=== PATIENT | female | born 1985 | race Caucasian/White ===

== ENCOUNTER 2022-02-18 11:45 | Inpatient (IN) | payer OTHER ==
[2022-02-18 12:38] VITALS: BMI 29.0
[2022-02-18 14:45] LABS: SARS-CoV-2 NAA Rapid Test Not Detected (NotDetected)
[2022-02-18] MEDS ORDERED: Ondansetron PF 4 MG/2 ML Vial IVP PRN ×3 (14:53→22:21)
[2022-02-18] MEDS ORDERED: hydrALAZINE 20 MG/ML VIAL SLOW IVP PRN ×2 (14:53→22:21)
[2022-02-18] MEDS ORDERED: Promethazine HCl 25 MG/ML VIAL IM PRN ×3 (14:53→22:21)
[2022-02-18] MEDS ORDERED: Famotidine/PF 20 mg/2ml Vial SLOW IVP PRN (14:53)
[2022-02-18] MEDS ORDERED: Bicitra 30 ML UDCUP PO PRN (14:53)
[2022-02-18 14:54] LABS: Syphilis Antibody Nonreactive (Nonreactive); Syphilis Antibody Index 0.03 S/CO (<1.00 Non-Reactive)
[2022-02-18 14:55] LABS: HBSAg Index 0.16 S/CO (0-0.99); Hep B Surf Ag NonReactive S/CO (NonReactive)
[2022-02-18] MEDS ORDERED: Lactated Ringer's 1,000 ML IV SCH (15:00)
[2022-02-18] MEDS ORDERED: ceFAZolin 2 GM/Dextrose 50 ML 2 GM in Premix Bag 1 BAG IVPB SCH (15:00)
[2022-02-18 15:29] LABS: Hemoglobin 11.6 g/dL (12.0-15.5); Mean Corpuscular HGB CONC 31.3 g/dL (32.0-36.0); Mean Corpuscular Hemoglobin 25.7 pg (27.0-33.0); Mean Corpuscular Volume 82.3 fl (81.6-98.3); Platelet Count 229 10x3/uL (150-450); RBC Distribution Width 17.7 % (11.5-14.5); Red Blood Cell (RBC) Count 4.51 10x6/uL (3.90-5.03); White Blood Cell (WBC) Count 9.4 10x3/uL (3.5-10.5)
[2022-02-18 15:45] LABS: HIV (1/2) Antibody/Antigen Non-Reactive (NonReactive); HIV 1/2 INDEX 0.04 S/CO (<1.00)
[2022-02-18] MEDS ORDERED: Dexamethasone 4 mg/ml Vial ONE (17:36)
[2022-02-18] MEDS ORDERED: Morphine PF 10 MG/10 ML VIAL ONE (17:36)
[2022-02-18] MEDS ORDERED: Ondansetron PF 4 MG/2 ML Vial ONE (17:36)
[2022-02-18] MEDS ORDERED: Oxytocin 10 UNITS/ML VIAL ONE (17:37)
[2022-02-18] MEDS ORDERED: PHENYLEPHRINE-NS 100 MCG/ML 10 ML SYRINGE ONE (17:37)
[2022-02-18] MEDS ORDERED: Ketorolac Tromethamine 30 MG/ML VIAL ONE (18:24)
[2022-02-18] MEDS ORDERED: Naloxone HCl 0.4 mg/ml Vial IV PRN (20:25)
[2022-02-18] MEDS ORDERED: Hydrocerin (Eucerin) Cream 120 gm Jar TOP PRN (20:25)
[2022-02-18] MEDS ORDERED: diphenhydrAMINE 50 MG/ML VIAL IVP PRN (20:25)
[2022-02-18] MEDS ORDERED: Ondansetron HCl/PF 4 MG/2 ML Vial IVP PRN (20:25)
[2022-02-18] MEDS ORDERED: Fentanyl 100 MCG/2 ML VIAL SLOW IVP PRN (20:25)
[2022-02-18] MEDS ORDERED: L&D-Morphine 4 MG/ML VIAL SLOW IVP PRN (20:25)
[2022-02-18] MEDS ORDERED: Promethazine HCl 25 MG SUPP PR PRN (20:25)
[2022-02-18] MEDS ORDERED: Naloxone HCl 0.4 mg/ml Vial IVP PRN ×2 (20:25)
[2022-02-18] MEDS ORDERED: Meperidine HCl/PF 25 MG/ML VIAL SLOW IVP PRN (20:25)
[2022-02-18] MEDS ORDERED: Meperidine HCl/PF 25 MG/ML VIAL ONE (20:29)
[2022-02-18] MEDS ORDERED: Ketorolac Tromethamine 30 MG/ML VIAL IVP SCH (20:30)
[2022-02-18] MEDS ORDERED: Communication Order-Pharmacy FS SCH (20:30)
[2022-02-18] MEDS ORDERED: Measles/Mumps/Rubella 10 MCG/0.5 ML VIAL SC ONE (22:21)
[2022-02-18] MEDS ORDERED: Boostrix 0.5 ML (Tdap) VIAL IM ONE (22:21)
[2022-02-18] MEDS ORDERED: Bisacodyl 10 MG SUPP PR PRN (22:21)
[2022-02-18] MEDS ORDERED: diphenhydrAMINE 25 MG CAP PO PRN (22:21)
[2022-02-18] MEDS ORDERED: Varicella virus, LIVE 0.5 ML VIAL SC ONE (22:21)
[2022-02-18] MEDS ORDERED: NS w/ Oxytocin 30 units 500 ML IV SCH (22:21)
[2022-02-18] MEDS ORDERED: Lanolin Ointment 7 GM TUBE TOP PRN (22:21)
[2022-02-18] MEDS ORDERED: Docusate 100 MG CAP PO SCH (22:30)
[2022-02-19] MEDS: Ketorolac Tromethamine 30 MG/ML VIAL IVP PRN ×3 (01:47→13:52)
[2022-02-19] MEDS ORDERED: Zolpidem Tartrate 5 MG TAB PO PRN (05:30)
[2022-02-19] MEDS ORDERED: HYDROcodone/Acetaminophen 5/325 mg Tablet PO PRN (05:30)
[2022-02-19 05:56] LABS: Hemoglobin 10.5 g/dL (12.0-15.5); Mean Corpuscular HGB CONC 31.6 g/dL (32.0-36.0); Mean Corpuscular Hemoglobin 25.9 pg (27.0-33.0); Platelet Count 241 10x3/uL (150-450); RBC Distribution Width 17.6 % (11.5-14.5); Red Blood Cell (RBC) Count 4.05 10x6/uL (3.90-5.03); White Blood Cell (WBC) Count 18.3 10x3/uL (3.5-10.5)
[2022-02-19] MEDS: Docusate 100 MG CAP PO SCH ×2 (09:04→20:58)
[2022-02-19] MEDS: Prenatal Vitamin 1 TAB PO SCH (09:04)
[2022-02-19] MEDS: Simethicone Chewable 80 MG TAB PO PRN ×2 (16:36→20:58)
[2022-02-19] MEDS: Ibuprofen 800 MG TAB PO SCH (21:00)
[2022-02-20] MEDS: Ibuprofen 800 MG TAB PO SCH ×2 (05:17→14:18)
[2022-02-20] MEDS: HYDROcodone/Acetaminophen 5/325 mg Tablet PO PRN ×2 (05:17→10:40)
[2022-02-20] MEDS: Simethicone Chewable 80 MG TAB PO PRN (05:18)
[2022-02-20] MEDS: Docusate 100 MG CAP PO SCH (08:50)
[2022-02-20] MEDS: Prenatal Vitamin 1 TAB PO SCH (08:50)
[2022-02-20 11:10] VITALS: BP 113/65; TEMP 97.7
== END 2022-02-20 15:30 | disposition home or self-care (01) | DRG 786 ==
LOC: CSHLD/OP 11:45 → CSHLD 13:14 → CSHPP 21:10
PROVIDERS: ADMIT Obstetrics & Gynecology; ATTEND Obstetrics & Gynecology
PROC: 10D00Z1 Extraction of Products of Conception, Low, Open Approach (ICD-10-PCS; principal; 2022-02-18)
DX: O34.211 Maternal care for low transverse scar from previous cesarean delivery (principal); K83.1 Obstruction of bile duct; O26.62 Liver and biliary tract disorders in childbirth; Z3A.37 37 weeks gestation of pregnancy; Z37.0 Single live birth; Z20.822 Contact with and (suspected) exposure to COVID-19
CPT/HCPCS: 36415; 51702; 85027; 86780; 86850; 86900; 86901; 87340; 87389; J0690; J1100; J1885; J2175; J2274; J2405; J2590; S0028; U0002